=== PATIENT | female | born 1990 ===

== ENCOUNTER 2017-07-02 15:32 | Inpatient (IN) | payer OTHER ==
[~2017-07-02] VITALS: Ht 157.5 cm; Wt 75.0 kg
[2017-07-02] MEDS ORDERED: ZYRTEC-D 5 MG-11 TER PO (16:31)
[2017-07-02] MEDS ORDERED: MICROGESTIN 1.51 TAB PO (16:32)
[2017-07-02] MEDS ORDERED: MULTI VITAMINS1 TAB PO (16:33)
[2017-07-02] MEDS ORDERED: ADVIL200 MG PO (16:33)
[2017-07-02 17:35] VITALS: BP 153/90; PULSE 62; TEMP 98.1
[2017-07-02 20:08] VITALS: BP 146/84; PULSE 64; TEMP 97.6
[2017-07-02 21:55] LABS: ADD PATHOLOGY DIFF REVIEW NO
[2017-07-02 22:10] LABS: HEMATOCRIT 24.8 % (37.0-47.0); HEMOGLOBIN 8.6 g/dl (12.5-16.0); MEAN CELL VOLUME 84 fl (80.0-100.0); MEAN CORPUSCULAR HEMOGLOBIN 29 pg (27.0-31.0); MEAN CORPUSCULAR HGB CONC 35 g/dl (33.0-37.0); RED BLOOD COUNT 2.97 M/mm3 (4.10-5.30); REDCELL DISTRIBUTION WIDTH-CV 12.5 % (11.5-14.5); RETIC % 2.5 % (0.5-3.52); WHITE BLOOD COUNT 8.1 K/mm3 (4.8-10.8)
[2017-07-02 22:12] LABS: ADJUSTED CALCIUM 8.7 mg/dL (8.4-10.2); ALBUMIN 2.7 gm/dL (3.5-5.0); BILIRUBIN,TOTAL 1.4 mg/dL (0.0-1.0); CALCIUM 7.7 mg/dL (8.4-10.2); POTASSIUM 3.9 mmol/L (3.4-5.0); TOTAL PROTEIN 5.2 gm/dL (6.4-8.2)
[2017-07-02 22:26] LABS: CREATININE, serum 4.09 mg/dL (0.52-1.25)
[2017-07-02 22:33] LABS: PLATELET COUNT 31 K/mm3 (130-400)
[2017-07-02 22:36] LABS: BAND 2 % (0-10); EOSINOPHIL 2 % (0-4); METAMYELOCYTE 1 % (0-0); NEUTROPHILS 75 % (42.0-75.2); PLATELET ESTIMATE DECREASED (NORMAL); TOTAL CELLS COUNTED 100; TOXIC GRANULATION PRESENT
[2017-07-02 22:37] LABS: ANISOCYTOSIS 1+; HYPOCHROMIA 1+; MICROCYTOSIS 1+; POIKILOCYTOSIS 1+; ROULEAUX 1+; SCHISTOCYTES 1+
[2017-07-02 23:26] VITALS: BP 116/82; PULSE 67; TEMP 99.9
[2017-07-03] MEDS ORDERED: PROCARDIA XL 3030 MG PO (00:20)
[2017-07-03 16:20] LABS: HAPTOGLOBIN 2 mg/dL (36-195)
== END 2017-07-03 01:00 | disposition short-term general hospital (02) | DRG 682 ==
LOC: MEDICAL 15:32
PROVIDERS: Internal Medicine
DX: N17.9 Acute kidney failure, unspecified (principal); M31.1 Thrombotic microangiopathy; I10 Essential (primary) hypertension
CPT/HCPCS: 99223-AI; 99239; J2270; J7030